=== PATIENT | female | born 1960 | race Caucasian/White ===

== ENCOUNTER 2017-07-01 18:25 | Emergency (ER) | payer OTHER, SELFPAY | END 2017-07-01 18:27 | disposition E | LOC: NAV ERS 18:25 | DX: T42.4X2A Poisoning by benzodiazepines, intentional self-harm, initial encounter (principal); I46.8 Cardiac arrest due to other underlying condition; T51.92XA Toxic effect of unspecified alcohol, intentional self-harm, initial encounter; F32.9 Major depressive disorder, single episode, unspecified | CPT/HCPCS: 96374; 96375 ==